=== PATIENT | male | born 1990 | race American Indian/Alaskan Native ===

== ENCOUNTER 2017-01-20 01:39 | Emergency (ER) | payer MEDICAID ==
[2017-01-20 01:50] VITALS: TEMP 99.2
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
[2017-01-20] MEDS ORDERED: Naproxen 500 MG TAB PO ONE (03:29)
[2017-01-20 03:50] LABS: SQUAMOUS EPITHIAL < 1 /hpf (0-5); URINE BILIRUBIN NEGATIVE (NEGATIVE); URINE BLOOD NEGATIVE (NEGATIVE); URINE CLARITY CLEAR (Clear); URINE COLOR YELLOW (YELLOW); URINE GLUCOSE (UA) NEG (Normal); URINE LEUKOCYTE ESTERASE NEG Leu/uL (Negative); URINE NITRATE NEGATIVE (NEGATIVE); URINE PROTEIN 30 mg/dL (NEGATIVE)
[2017-01-20 04:01] LABS: BARBITURATES, UR NEGATIVE (NEGATIVE); BENZODIAZEPINES, UR NEGATIVE (NEGATIVE); OPIATES, UR NEGATIVE (NEGATIVE); PHENCYCLIDINE, UR POSITIVE (NEGATIVE)
[2017-01-20 04:46] VITALS: BP 132/76; PULSE 84; RESP 16
[2017-01-20 05:38] VITALS: O2SAT 98
--- NOTE | 2017-01-20 12:22 | RAD ---
PROCEDURE: Left Hand Radiographs. HISTORY: pain/swelling COMPARISON: None. FINDINGS: BONES: Normal. No fracture. JOINTS: Normal. No osteoarthritic changes. SOFT TISSUES: Normal. OTHER FINDINGS: None. IMPRESSION: Normal left hand radiographs. If symptoms persist or occult fracture suspected clinically recommend repeat radiographs in 5-10 days as most fractures should become radiographically evident in this timeframe.
--- NOTE | 2017-01-20 18:31 | RAD ---
PROCEDURE: Radiographs of the chest and bilateral ribs HISTORY: injury COMPARISON: None available. TECHNIQUE: Frontal radiograph of the chest and multiple oblique radiographs of the bilateral ribs were obtained. FINDINGS: RIGHT RIBS: No definitive radiographic evidence of acute displaced right-sided rib fracture LEFT RIBS: No obvious left rib fracture seen. LUNGS: Lung blackmon clear. No infiltrate effusion or evidence of pneumothorax PLEURA: No pneumothorax or pleural fluid. CARDIOVASCULAR: Normal sized heart. No pulmonary vascular congestion. OTHER FINDINGS: None. IMPRESSION: No evidence of acute displaced right or left-sided rib fracture. No acute cardiopulmonary disease. If symptoms persist recommend follow-up CT scan of the chest
== END 2017-01-20 04:46 | disposition home or self-care (01) ==
LOC: H.ER 01:39
DX: S60.222A Contusion of left hand, initial encounter (principal); S20.219A Contusion of unspecified front wall of thorax, initial encounter; Y04.0XXA Assault by unarmed brawl or fight, initial encounter; Y92.89 Other specified places as the place of occurrence of the external cause